=== PATIENT | female | born 1960 | race Caucasian/White ===

== ENCOUNTER 2017-10-25 11:10 | Observation (INO) | payer OTHER ==
[2017-10-25] VITALS (7 sets, daily range): BP systolic 99–132; BP diastolic 67–96; PULSE 86–101; TEMP 36.6–36.8; O2SAT 93–96; Ht 161.3 cm; Wt 67.0 kg
[~2017-10-25] VITALS: Ht 161.3 cm; Wt 67.0 kg
[~2017-10-25 11:10] MED LIST: ADVIN10/60 INH; ASPI81CH2 PO; OXYC-57 PO; PRLSR20 PO; SPRIN/30 INH
--- NOTE | 2017-10-25 12:23 | History & Physical Bridge Note ---
H&P Re-Evaluation Bridge Note: I have examined the patient, reviewed the History & Physical and in the interval since the performance of the History & Physical I have noted the following changes of clinical significance: No changes noted
--- NOTE | 2017-10-25 12:24 | Pre Sedation Assessment ---
Pre Sedation Assessment General Date of Sedation: Oct 25, 2017. Vital Signs Past 12 Hours Date Time Temp Pulse Resp B/P (MAP) Pulse Ox O2 Delivery O2 Flow Rate FiO2 10/25/17 11:36 36.7 101 16 132/96 (108) 96 Room Air Review Cardiovascular: regular rate, rhythm Lungs: lungs clear, normal breath sounds Pre-Sedation Airway Assessment Smoking Status: Current Every Day Smoker Hx of Sleep Apnea: No Short Thick Neck: No Oral Cavity: Dentures Mallampati Classification: Class II ASA Classification: Class II Procedure Planning Contraindications for Sedation: None Current Medications Reviewed: Yes Notes The planned sedation has been discussed with the patient. Informed Consent was obtained. I have identified the patient, determined the appropriateness of sedation and have assessed the patient immediately prior to the procedure. All medicine(s) and interventions are by my order.
[2017-10-25] MEDS ORDERED: MIDAZOLAM HCL 5 MG/ML 1 ML VIAL ONE ×3 (12:33→14:14)
[2017-10-25] MEDS ORDERED: FENTANYL CITRATE INJ 50 MCG/1 ML 2 ML VIAL ONE ×3 (12:33→14:14)
--- NOTE | 2017-10-25 13:02 | History and Physical ---
History & Physical Date Oct 25, 2017. Chief Complaint palpitations History of Present Illness The patient is a 56 year old female with complaints of palpitations Past Medical/Surgical History Medical Problems: (1) Atrial tachycardia (2) COPD (chronic obstructive pulmonary disease) (3) Left shoulder tendinitis (4) Pyelonephritis (5) Scapula fracture (6) Tobacco abuse Surgical Problems: (1) History of hysterectomy (2) Hx of appendectomy (3) Hx of tonsillectomy Additional History Hepatic Disease: No Endocrine Disorder: No Kidney Disease: No Hypertension: No Heart Disease: Yes Bleeding Tendencies: No Infectious Diseases: No Other: copd and tobacco use Allergies Coded Allergies: No Known Allergies (Unverified , 11/29/15) Home Medications Scheduled Aspirin (Aspirin), 1 TAB PO DAILY Fluticasone Prop/Salmeterol (Advair Diskus 100/50 60 Dose), 1 PUFFS INH BID Omeprazole (Prilosec), 20 MG PO DAILY Tiotropium [place] (Spiriva Handihaler), 1 CAP INH DAILY Scheduled PRN Oxycodone/Acetaminophen 5MG/325MG (Percocet 5MG/325MG), 1 TAB PO QID PRN for For Pain Physical Examination Skin: warm/dry Eyes: normal inspection, EOMI Head: normocephalic, atraumatic Neck: supple, no adenopathy Respiratory/Chest: lungs clear, normal breath sounds Cardiovascular: regular rate, rhythm, no edema, no murmur Abdomen / GI: normal bowel sounds, non tender Back: normal inspection Extremities: normal inspection Neurologic/Psych: alert, oriented x 3 Diagnosis 1. Palpitations 2. SVT on LINQ 3. CAD by cardiac cath 2008 non-obstructive 4. COPD 5. Chronic tobacco use ASA Classification: ASA Class II Plan of Treatment for EPS with possible ablation discussed the procedure and risks again with the patient consent signed
[2017-10-25] MEDS ORDERED: LIDOCAINE HCL 1% 20 ML VIAL ONE (13:27)
[2017-10-25] MEDS ORDERED: ISOPROTERENOL 200 MCG / 50ML D5W IV ONE (13:59)
[2017-10-25] MEDS ORDERED: HEPARIN SOD (PORCINE) 1000 UNIT/ML 10 ML VIAL ONE (14:04)
--- NOTE | 2017-10-25 15:08 | Post Sedation Assessment ---
Post Sedation Assessment General Date of Sedation Oct 25, 2017. Vital Signs: Vital Signs Past 12 Hours Date Time Temp Pulse Resp B/P (MAP) Pulse Ox O2 Delivery O2 Flow Rate FiO2 10/25/17 11:36 36.7 101 16 132/96 (108) 96 Room Air Post Procedure Recovery Score Activity: (2) Moves 4 extremities * Respiration: (2) Deep breath/cough Circulation: (2) +/-20% PreAnes Value Consciousness: (2) Fully Awake Oxygen Saturation: (2) > 92% On Room Air Post Anesthesia Score: 10 Discharge Sedation Level of Care: Fast Track Phase II Post Sedation Plan On clinical assessment, the patient appears to have tolerated the sedation without complications. Patient is recovering as anticipated. Patient will continue to be monitored by nursing and may be discharged when sedation discharge criteria are met per below protocol. Upon Completions of procedure and additional 15 minutes continue every 5 minute vital signs and the P.A.R. score; then discharge to a Phase I or Fast Track to Phase II per the following guidelines: * Discharge Patient to appropriate Phase II area if PAR is 8 or greater or return to pre- procedure baseline. The post - procedure orders will be as directed. * If PAR score is less than 8 or not return to pre-procedure baseline then patient will follow Phase I monitoring till PAR is reached for Phase II. The Phase I may be done in procedure room or may call to secure a Phase I area. * If naloxone or flumazenil are used for reversal, hold in Phase I for an additional 60 -120 minutes before discharge to Phase II. Please call the Sedation Physician to re-evaluate and complete post-note for discharge to Phase II area. Do NOT discharge from procedure sedation or Phase 1 until post- sedation evaluation note is complete by procedure /sedation MD Sedation Discharge Instructions to be given to the patient at discharge to home.
--- NOTE | 2017-10-25 15:10 | Discharge Instructions ---
Discharge Instructions Date of Service Oct 25, 2017. 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 Instructions / Follow-Up Instructions / Follow-Up ACTIVITY RECOMMENDATIONS: It is common to feel weak and fatigue for a few days. * Do not drive or operate any motorized equipment for the next 1 day. * Limit stair usage (2 or 3 trips a day only) for the next three days. * Do not lift anything heavier than 10 pounds for the next 7 days. * Do not engage in vigorous exercise or any sports for the next 7 days. * You may shower the day after your procedure, but do not immerse the area for three days. Cleanse the site gently with soap and water. SPECIAL CARE INSTRUCTIONS: * You may replace the pressure dressing or band-aid the morning after the procedure. * After your procedure, it is normal to have a small bruise or small lump at the site. Examine your site daily for any change in the bruise or lump, redness, swelling, drainage or numbness. Notify your doctor if any change. BLEEDING: * If there is a small amount of bleeding at the site, lie down and apply firm pressure with a clean cloth for ten minutes. When the bleeding stops, lie quietly keeping the procedure limb straight for six hours. Notify your doctor as soon as possible. * If the bleeding does not stop after ten minutes or if there is a large amount of bleeding or spurting, call 911 immediately. Continue to lie down and hold firm pressure until help arrives. SKIN IRRITATION: * You may experience some redness and/or swelling in the area where radiation was administered. If any skin irritation occurs, please contact your family physician. FOLLOW UP VISIT: Keep any scheduled doctor appointments. Current Hospital Diet Patient's current hospital diet: AHA Diet (Heart Healthy) Discharge Diet Recommended Diet: AHA Diet (Heart Healthy) Procedures Procedures Performed: EPS, 3D mapping of the His bundle region, slow pathway modification, isoprel drug challenge Pending Studies Studies pending at discharge: no Medical Emergencies . Who to Call and When: Medical Emergencies: If at any time you feel your situation is an emergency, please call 911 immediately. . Non-Emergent Contact Non-Emergency issues call your: Electrical Linesworker . . "Provider Documentation" section prepared by Sabrina Al. .
--- NOTE | 2017-10-25 15:14 | Discharge Summary ---
Discharge Summary Date of Service Oct 25, 2017. Discharge Summary Admission Date: 10/25/2017 Discharge Date: Oct 26, 2017 Discharge Disposition: Home Principal Diagnosis: AVNRT s/p slow pathway modification Secondary Diagnoses/Problems: CAD s/p cath in 2008 non-obstructive COPD Chronic tobacco use Procedures: EPS, 3D mapping of His bundle, slow pathway modification, isuprel drug challenge Medication Reconciliation Continued Medications: Aspirin (Aspirin) 81 Mg Chw 1 TAB PO DAILY for 30 Days, #30 TAB 3 Refills Fluticasone Prop/Salmeterol (Advair Diskus 100/50 60 Dose) 1 Ea Aerp 1 PUFFS INH BID for 30 Days, #1 INHALER 5 Refills Omeprazole (Prilosec) 20 Mg Capcr 20 MG PO DAILY, CAP Oxycodone/Acetaminophen 5MG/325MG (Percocet 5MG/325MG) Tab 1 TAB PO QID PRN for For Pain for 30 Days, #120 TAB PAIN Tiotropium [place] (Spiriva Handihaler) 30 Puff/540 Mcg Aerp 1 CAP INH DAILY for 30 Days, #30 CAP 3 Refills Admission Information Physical Exam (per Admitting): aaox3, NAD NC/AT, EOMI Supple, No JVD Nrl S1/S2, no murmur CTA b/l no w/r/r soft NT/ND no edema b/l LE no focal deficits skin intact Hospital Course Pt admitted for elective EPS with possible ablation due to SVT on LINQ interrogation. She underwent procedure was found to have typical AVNRT; a slow pathway modification was performed without any complications. She was monitored overnight and discharged home. Total time spent on discharge = >30 minutes This includes examination of the patient, discharge planning, medication reconciliation, and communication with other providers. Discharge Instructions ACTIVITY RECOMMENDATIONS: It is common to feel weak and fatigue for a few days. * Do not drive or operate any motorized equipment for the next 1 day. * Limit stair usage (2 or 3 trips a day only) for the next 1 day. * Do not lift anything heavier than 10 pounds for the next three days. * Do not engage in vigorous exercise or any sports for the next 7 days. * You may shower the day after your procedure, but do not immerse the area for three days. Cleanse the site gently with soap and water. SPECIAL CARE INSTRUCTIONS: * You may replace the pressure dressing or band-aid the morning after the procedure. * After your procedure, it is normal to have a small bruise or small lump at the site. Examine your site daily for any change in the bruise or lump, redness, swelling, drainage or numbness. Notify your doctor if any change. BLEEDING: * If there is a small amount of bleeding at the site, lie down and apply firm pressure with a clean cloth for ten minutes. When the bleeding stops, lie quietly keeping the procedure limb straight for six hours. Notify your doctor as soon as possible. * If the bleeding does not stop after ten minutes or if there is a large amount of bleeding or spurting, call 911 immediately. Continue to lie down and hold firm pressure until help arrives. SKIN IRRITATION: * You may experience some redness and/or swelling in the area where radiation was administered. If any skin irritation occurs, please contact your family physician. FOLLOW UP VISIT: Keep any scheduled doctor appointments.
[2017-10-25] MEDS ORDERED: ACETAMINOPHEN 325 MG TAB PO PRN (15:15)
--- NOTE | 2017-10-25 15:16 | [facility] Post Operative Brief Note ---
Immediate Operative Summary Operative Date Oct 25, 2017. Pre-Operative Diagnosis svt Post-Operative Diagnosis avnrt Procedure(s) Performed EPS, 3D mapping of the His bundle region, slow pathway modification, isoprel drug challenge Surgeon danny parkinson Slip Filler Surgeon(s) none Estimated Blood Loss <5cc Findings See Below see official report Fluids (cc crystalloids) 500 Specimens none Drains None Anesthesia Type IV Sedat Cons RN Only Complication(s) none Disposition Accompanied Pt To Recover: yes Disposition: PCU
[2017-10-25] MEDS: OXYCODONE/ACETAMINOPHEN 5-325 TAB PO PRN ×2 (15:54→22:50)
[2017-10-25] MEDS ORDERED: IV FLUIDS COMPLETED PRN (16:00)
--- NOTE | 2017-10-25 17:01 | OPERATIVE REPORT ---
DATE OF OPERATION: 10/25/2017 PREOPERATIVE DIAGNOSIS: Supraventricular tachycardia and palpitations. POSTOPERATIVE DIAGNOSIS: Typical atrioventricular allyssa reentrant tachycardia. PROCEDURE: Electrophysiology study, 3D mapping of the His bundle region, slow pathway modification, and isuprel drug challenge. SURGEON: Dr. Sabrina Al. LATHE TENDER: None. ANESTHESIA: Monitored conscious sedation administered under my supervision by Anastasia Dos Santos. Start time 13:03 and end time 15:10; total of 9 mg of Versed, 175 mcg of fentanyl. BLOOD LOSS: Less than 5 mL. INTRAVENOUS FLUIDS: 500 mL COMPLICATIONS: None. CONDITION: Stable. URINE OUTPUT: Not applicable. SPECIMENS: None. FINDINGS: See below. DRAINS: None. INDICATIONS: This is a 56-year-old female with past medical history for palpitations. She underwent a link recorder and was found to have SVT on this link recorder at 170 beats per minute, which was symptomatic and lasting for over 3 hours. She also has nonobstructive coronary artery disease based on a cardiac catheterization in 2008, COPD, and chronic tobacco use. Due to the SVT and palpitations, she was recommended an electrophysiology study with possible ablation. CONSENT: Consent was obtained prior to the patient going into electrophysiology lab. The patient informed of the risks, benefits, alternatives of the procedure, risks include but not limited to sudden cardiac , cardiac arrhythmias, cerebrovascular accident, myocardial infarction, injury to the blood vessels, chamber of the heart or the [place] electrical system where she would need a permanent pacemaker, bleeding and infection. The patient understood these risks and agreed to the procedure as planned. Informed consent was obtained. DESCRIPTION OF THE PROCEDURE: The patient was brought into the electrophysiology lab in a fasting state. Connected to continuous product manager e commerce. A timeout was performed to ensure patient identity and procedure correctly. The patient was prepped and draped over the bilateral groins in normal surgical standard fashion. [place] precautions were maintained throughout the procedure. Moderate sedation was given throughout the procedure for patient's comfort level. A 10 mL of 1% lidocaine were given in the bilateral groins for local anesthesia. With the modified Seldinger technique, venous access was obtained; however, on the left femoral vein, the artery and vein were right on top of each other and I had kept sticking the artery, so I opted to just put everything in the right femoral vein. So under ultrasound guidance using the modified Seldinger technique following access on the right femoral vein. A 7-Nepalese sheath followed by a Photos to Photos polar Biosense coronary sinus DF curve catheter was positioned down at the coronary sinus. A 6-Nepalese sheath followed by Hisser quadripolar catheter positioned over the His bundle. A 6-Nepalese sheath, followed by a Taylor quadripolar catheter positioned on the right ventricular apex. A 6-Nepalese sheath followed by a Taylor quadripolar catheter positioned in the high right atrium. Electrophysiology study was performed with the following findings: 1. Baseline intervals. 2. The OH interval 108 milliseconds, QRS 60 milliseconds, QT 344 milliseconds. Sinus cycle length 652 milliseconds, AH 56 milliseconds, HV 42 milliseconds. 3. The AV Wenckebach was found to be 300 milliseconds. 4. There was infra-His ERP was found to be at 550/320, so I lost V conduction, but had His capture and then the fast pathway ERP was found to be at 550/240. Because from 550-240 going down to 200, I had occasional AH jump and when I did conduct down the slow pathway, a ventricular complex was conducted at that time. The atrial ERP was less than or equal to 550/200. 5. The right ventricular ERP was 550/220 and 400/200. 6. I gave up to triples from the high right atrium at 400/290/280/270 was when I induced a short burst of AVNRT. The fast tachycardia cycle length was 334 milliseconds. The VA time was 52 milliseconds. Retrograde concentric A conduction and V to CS proximal A was 0 milliseconds. Running this atrial drive again at 400/290/280/270, I had sustained SVT with RV pacing. I had a VAV response for the SVT continued confirming that it was typical AVNRT and eventually, we were able to break this with V pacing. We then set up to do a slow pathway modification. I removed the catheter from the high right atrium and swapped the 6-Nepalese sheath out for an SRO sheath and then the Biosense DF curve 4 mm catheter was placed up into the heart. We did 3D mapping of the His bundle region then when we gave a series of radiofrequency stein at 25 [address], no more than 20 seconds in duration, on the low right atrial septum, we had adequate time of junctional rhythms during a radiofrequency ablation. I then positioned the ablation catheter in the high right atrium and proceeded to do a post-ablation electrophysiology study with the following findings: Baseline intervals, OH interval 112 milliseconds, QRS 62 milliseconds, QT 356 milliseconds, sinus cycle length 586 milliseconds, AH 56 milliseconds, HV 48 milliseconds, AV Wenckebach 300 milliseconds. Fast pathway ERP was 500/300, AV node ERP was less than or equal to the atrial ERP. The atrial ERP was 500/210. Of note, this electrophysiology study post-ablation ends up being from the proximal CS, the ablation catheter was not capturing that while in the high right atrium. I gave up to triples from the proximal coronary sinus and I did not induce any SVT, rare time I had 1 echo beat. Isuprel at 2 was then started. Once we had an adequate isuprel effect this repeat electrophysiology study was performed with following findings: Sinus cycle length 44, AH 60 milliseconds, HV 42 milliseconds, AV Wenckebach 240 milliseconds, AV node ERP was less than or equal to 400/230. The atrial ERP was less than or equal to The AV node ERP. I gave up to triples again from the proximal coronary sinus while on isuprel without any evidence of sustained SVT. There was 1 echo beat on rare occasions. All the catheters removed from the body, the sheaths were pulled with manual compression being held for hemostasis. IMPRESSION: 1. 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 2. Dual atrioventricular allyssa pathology. PLAN: Monitor patient overnight, 12-lead ECG. She is not allowed to do any heavy lifting or squatting for 1 week. She will follow up in my office in [place] in 1 month. I attest to the content of the Intraoperative Record and any orders documented therein. Any exception s are noted below.
[2017-10-25] MEDS: FLUTICASONE/SALMETEROL 100/50 (ADVAIR) 14 PUFF/1 INHALER INH SCH (21:00)
[2017-10-26 03:39] VITALS: BP 101/69; PULSE 84; TEMP 36.7; O2SAT 96
[2017-10-26] MEDS: OXYCODONE/ACETAMINOPHEN 5-325 TAB PO PRN (05:20)
[2017-10-26 06:52] VITALS: BP 110/74; PULSE 84; TEMP 37; O2SAT 96
[2017-10-26] MEDS: FLUTICASONE/SALMETEROL 100/50 (ADVAIR) 14 PUFF/1 INHALER INH SCH (08:18)
--- NOTE | 2017-10-26 08:28 | Cardiology Follow-Up ---
Subjective Subjective Date of Service: Oct 26, 2017. Pt evaluation today including: conversation w/ patient, physical exam, lab review Pain: some discomfort at groin sites Problem List Medical Problems: (1) COPD (chronic obstructive pulmonary disease) Status: Chronic (2) COPD exacerbation Status: Acute (3) Pneumonia Status: Acute (4) Tobacco abuse Status: Chronic (5) Urticaria Status: Acute Review of Systems Constitutional: No weakness, No fatigue Respiratory: No shortness of breath, No dyspnea on exertion Cardiac: No chest pain, No edema, No palpitations Abdomen: No nausea, No vomiting, No diarrhea Endo: No fatigue Objective Vital Signs Last Vital Signs Documentation Date Time Temp Pulse Resp B/P (MAP) Pulse Ox O2 Delivery O2 Flow Rate FiO2 10/26/17 06:52 37.0 84 19 110/74 (86) 96 Room Air Physical Exam: General Appearance: WD/WN, no apparent distress Eyes: bilateral eyes PERRL, bilateral eyes EOMI Neck: supple, no JVD Respiratory/Chest: lungs clear, normal breath sounds Cardiovascular: regular rate, rhythm, no edema, no murmur Abdomen: soft (b/l groins no hematoma, no ecchymosis mild tenderness to palpation) Neurologic/Psychiatric: alert, oriented x 3 Skin: warm/dry, no rash Assessment and Plan Impression: AVNRT s/p slow pathway modification 10/25/2017 CAD s/p cath in 2008 non-obstructive COPD Chronic tobacco use Plan Ok for discharge home today tylenol or ibuprofen for pain no heavy lifting or squatting for 1 week f/u in 1 month Discharge planning: home Medications: Medications Administered Medications (Trade) Dose Ordered Sig/Han Route Start Time Stop Time Status Last Admin Dose Admin Aspirin (Ecotrin Tab) 81 mg QAM PO 10/26/17 09:00 11/25/17 08:59 10/26/17 08:17 81 MG Salmeterol Xinafoate/ Fluticasone (Advair Diskus 100/50 Inh) 1 puff BID INH 10/25/17 21:00 11/24/17 20:59 10/26/17 08:18 1 PUFF Oxycodone/ Acetaminophen (Percocet 5-325mg Tab) 1 tab QID PRN PO 10/25/17 15:15 11/08/17 15:14 10/26/17 05:20 1 TAB Tiotropium [place] (Spiriva Handihaler Inhaler) 1 puff DAILY INH 10/26/17 09:00 11/25/17 08:59 10/26/17 08:18 1 PUFF Pantoprazole Sodium (Protonix Tab) 40 mg QAM PO 10/26/17 09:00 11/25/17 08:59 10/26/17 08:18 40 MG Lab Results: ECG:SR 81bpm RBBB Telemetry: SR
[2017-10-26] MEDS ORDERED: ASPIRIN 81 MG ECTAB PO SCH (09:00)
[2017-10-26] MEDS ORDERED: TIOTROPIUM BROMIDE 5 PUFF/90 MCG INH INH SCH (09:00)
[2017-10-26] MEDS ORDERED: PANTOprazole SOD 40 MG TAB PO SCH (09:00)
[2017-10-26 11:00] VITALS: BP 103/73; PULSE 91; TEMP 36.8; O2SAT 96
[2017-10-26 11:05] VITALS: BP 103/73; PULSE 91; TEMP 36.8; O2SAT 96
== END 2017-10-26 12:36 | disposition home or self-care (01) ==
LOC: C.EP 11:10 → C.2T 15:06 → ENRESERV 15:12
PROVIDERS: ADMIT Internal Medicine; ATTEND Internal Medicine
DX: I47.1 Supraventricular tachycardia (principal); R00.2 Palpitations; J44.9 Chronic obstructive pulmonary disease, unspecified; I25.10 Atherosclerotic heart disease of native coronary artery without angina pectoris; Z72.0 Tobacco use; Z79.899 Other long term (current) drug therapy; Z79.82 Long term (current) use of aspirin